=== PATIENT | male | born 1995 | race Caucasian/White ===

== ENCOUNTER 2016-12-04 12:42 | Emergency (ER) | payer OTHER ==
[~2016-12-04] VITALS: Ht 195.6 cm; Wt 68.0 kg
[2016-12-04 12:42] VITALS: BP 156/84
== END 2016-12-04 15:00 | disposition home or self-care (01) ==
LOC: ER 13:02
DX: S09.90XA Unspecified injury of head, initial encounter (principal); V43.52XA Car driver injured in collision with other type car in traffic accident, initial encounter; Y93.89 Activity, other specified; Y92.89 Other specified places as the place of occurrence of the external cause; Y99.9 Unspecified external cause status
CPT/HCPCS: A4606; Z7610